=== PATIENT | female | born 1985 | race Caucasian/White ===

== ENCOUNTER 2017-07-24 09:21 | Inpatient (IN) | payer OTHER ==
[2017-07-24] MEDS ORDERED: OXYTOCIN 30 UNITS/LR 500 ML IV ×3 (09:30→18:00)
[2017-07-24] MEDS ORDERED: METHYLERGONOVINE 0.2 MG INJ IM ×2 (09:30→18:00)
[2017-07-24] MEDS ORDERED: MISOPROSTOL 200 MCG TAB PR ×2 (09:30→18:00)
[2017-07-24] MEDS ORDERED: CARBOPROST 250 MCG INJ IM ×2 (09:30→18:00)
[2017-07-24] MEDS: LACTATED RINGER'S 1,000 ML IV (09:59)
[2017-07-24 10:08] LABS: ADD MAN DIFF? NO
[2017-07-24 10:24] LABS: BASOPHIL # 0.1 10^3/ul (0.0-0.1); BASOPHILS % 0.4 % (0.0-2.0); EOSINOPHILS # 0.2 10^3/ul (0.0-0.5); EOSINOPHILS % 1.4 % (0.0-7.0); HEMATOCRIT 38.2 % (37.0-47.0); HEMOGLOBIN 12.9 g/dl (12.0-16.0); LYMPHOCYTES # 3.1 10^3/ul (0.8-2.9); LYMPHOCYTES % 22.4 % (15.0-51.0); MEAN CORPUSCULAR HGB CONC 33.8 g/dl (32.0-37.0); MEAN CORPUSCULAR VOLUME 85.8 fl (82.0-101.0); MEAN PLATELET VOLUME 10.8 fl (7.4-10.4); MONOCYTE # 0.8 10^3/ul (0.3-0.9); MONOCYTES % 5.4 % (0.0-11.0); NEUTROPHIL # 9.7 10^3/ul (1.6-7.5); NEUTROPHILS % 69.2 % (39.0-77.0); PLATELET COUNT 261 10^3/UL (140-415); RED BLOOD COUNT 4.45 10^6/ul (4.20-5.40); RED CELL DISTRIBUTION WIDTH 14.6 % (11.5-14.5)
[2017-07-24 10:42] LABS: INR 0.89; PARTIAL THROMBOPLASTIN TIME 25.2 Sec (25.0-35.0); PROTIME 12.1 Sec (11.9-14.9); PT RATIO 0.9
[2017-07-24] MEDS ORDERED: EPHEDrine SULFATE 50 MG/5 ML SYG (12:45)
[2017-07-24] MEDS ORDERED: morphine SULFATE/PF (10 MG/10 ML) INJ (12:45)
[2017-07-24] MEDS ORDERED: ONDANSETRON 4 MG INJ (12:45)
[2017-07-24] MEDS ORDERED: OXYTOCIN 10 UNIT INJ (12:46)
[2017-07-24] MEDS ORDERED: METOCLOPRAMIDE 10 MG INJ ×2 (12:46→15:18)
[2017-07-24] MEDS ORDERED: BUPIVACAINE 0.75%/DEXT (SPINAL) 2 ML INJ (12:47)
[2017-07-24] MEDS: CEFAZOLIN 2 GM/50 ML (PMX) 50 ML IV (13:13)
[2017-07-24 14:29] LABS: HEPATITIS B SURFACE ANTIGEN NEGATIVE (NEGATIVE)
[2017-07-24] MEDS ORDERED: EPHEDrine SULFATE 50 MG/5 ML SYG IV (14:30)
[2017-07-24] MEDS ORDERED: morphine 2 MG INJ IV ×2 (14:30)
[2017-07-24] MEDS ORDERED: NALOXONE (0.4 MG/ML) INJ IV (14:30)
[2017-07-24] MEDS ORDERED: DIPHENHYDRAMINE 50 MG INJ IV (14:30)
[2017-07-24] MEDS: ONDANSETRON 4 MG INJ IV (14:36)
[2017-07-24] MEDS: morphine SULFATE/PF (10 MG/10 ML) INJ SPINAL (14:36)
[2017-07-24] MEDS: KETOROLAC 30 MG INJ IV (14:38)
[2017-07-24] MEDS: METOCLOPRAMIDE 10 MG INJ IV (15:20)
[2017-07-24] MEDS: OXYTOCIN 30 UNITS/LR 500 ML IV ×2 (15:38→23:16)
[2017-07-24] MEDS: CEFAZOLIN 1 GM/50 ML (PMX) 50 ML IVPB (18:00)
[2017-07-24] MEDS ORDERED: IBUPROFEN 600 MG TAB PO (18:00)
[2017-07-24 22:19] LABS: RAPID PLASMA REAGIN NONREACTIVE (NR)
[2017-07-24] MEDS: SENNA/DOCUSATE NA (8.6MG/50MG) TAB PO (23:13)
[2017-07-25] MEDS: OXYTOCIN 30 UNITS/LR 500 ML IV ×2 (03:21→07:46)
[2017-07-25] MEDS: LACTATED RINGER'S 1,000 ML IV ×3 (07:47→11:59)
[2017-07-25] MEDS: LANOLIN 7 GM TUBE TOP (09:43)
[2017-07-25] MEDS: SENNA/DOCUSATE NA (8.6MG/50MG) TAB PO ×2 (09:43→20:23)
[2017-07-25] MEDS: KETOROLAC 30 MG INJ IV (10:22)
[2017-07-25 10:48] LABS: ADD MAN DIFF? NO
[2017-07-25 10:50] LABS: BASOPHILS % 0.2 % (0.0-2.0); EOSINOPHILS # 0.1 10^3/ul (0.0-0.5); EOSINOPHILS % 0.8 % (0.0-7.0); HEMATOCRIT 32.6 % (37.0-47.0); HEMOGLOBIN 11.1 g/dl (12.0-16.0); LYMPHOCYTES # 2.2 10^3/ul (0.8-2.9); LYMPHOCYTES % 16.6 % (15.0-51.0); MEAN CORPUSCULAR VOLUME 85.1 fl (82.0-101.0); MEAN PLATELET VOLUME 9.9 fl (7.4-10.4); MONOCYTE # 0.7 10^3/ul (0.3-0.9); MONOCYTES % 5.4 % (0.0-11.0); NEUTROPHIL # 9.9 10^3/ul (1.6-7.5); NEUTROPHILS % 76.2 % (39.0-77.0); PLATELET COUNT 196 10^3/UL (140-415); RED BLOOD COUNT 3.83 10^6/ul (4.20-5.40); RED CELL DISTRIBUTION WIDTH 14.6 % (11.5-14.5)
[2017-07-25] MEDS: IBUPROFEN 600 MG TAB PO ×3 (12:00→23:54)
[2017-07-25] MEDS: INFLUENZA VIRUS VACCINE 0.5 ML (DISPENSING) IM* (12:05)
[2017-07-25] MEDS: OXYCODONE/ACETAMINOPHEN (5/325) TAB PO (15:28)
[2017-07-25] MEDS: HYDROCODONE/APAP (5/325) TAB PO (20:23)
[2017-07-26] MEDS: IBUPROFEN 600 MG TAB PO ×4 (05:41→23:36)
[2017-07-26] MEDS: OXYCODONE/ACETAMINOPHEN (5/325) TAB PO ×2 (08:30→16:40)
[2017-07-26] MEDS: SENNA/DOCUSATE NA (8.6MG/50MG) TAB PO ×2 (09:00→21:12)
[2017-07-26] MEDS: HYDROCODONE/APAP (5/325) TAB PO (10:12)
[2017-07-27] MEDS: IBUPROFEN 600 MG TAB PO ×3 (05:45→17:55)
[2017-07-27] MEDS: SENNA/DOCUSATE NA (8.6MG/50MG) TAB PO (08:42)
[2017-07-27] MEDS: OXYCODONE/ACETAMINOPHEN (5/325) TAB PO (08:42)
[2017-07-27] MEDS: DIPHTH/TET/ACEL PERTUSS (ADULT) 0.5 ML VIAL IM* (09:00)
[2017-07-27] MEDS: NA PHOSPHATE/BIPHOS 133 ML ENEMA PR (16:52)
== END 2017-07-27 18:30 | disposition home or self-care (01) | DRG 766 ==
LOC: L-D 09:21 → PP1 17:39
PROVIDERS: Obstetrics & Gynecology
PROC: 10D00Z1 Extraction of Products of Conception, Low, Open Approach (ICD-10-PCS; principal; 2017-07-24 12:30)
PROC: 3E033VJ Introduction of Other Hormone into Peripheral Vein, Percutaneous Approach (ICD-10-PCS; 2017-07-24 12:30)
DX: O34.211 Maternal care for low transverse scar from previous cesarean delivery (principal); Z3A.39 39 weeks gestation of pregnancy; Z37.0 Single live birth
CPT/HCPCS: 85025; 85610; 85730; 86592; 86850; 86900; 86901; 87340; 90686; 99464